=== PATIENT | female | born 1940 | race Caucasian/White ===

== ENCOUNTER 2016-11-30 19:49 | Emergency (ER) | payer OTHER, MEDICARE ==
[~2016-11-30] VITALS: Ht 157.5 cm; Wt 61.2 kg
[~2016-11-30 19:49] MED LIST: APAP500 OR; AZITHROMYCIN; COLACE100 MG PO; CRESTOR10 MG PO; DARVOCET-N 1001 EAC1 PO; FELDENE20 MG PO; FLAGYL500 M1 PO; IBUPROFEN 600600 M1 PO; MIACALCIN IH; PERCOCET 5-3251 EACH PO; ZOFRAN 4 MG ORAL4 M1 DIS
[2016-11-30 20:24] VITALS: BP 155/117
[2016-11-30] MEDS ORDERED: PREDNISONE 20 M20 MG PO (20:42)
[2016-11-30] MEDS ORDERED: ZYRTEC10 MG PO (20:42)
[2016-11-30] MEDS ORDERED: KEFLEX500 MG PO (20:42)
== END 2016-11-30 21:06 | disposition home or self-care (01) ==
LOC: ER 19:49
DX: L25.8 Unspecified contact dermatitis due to other agents (principal); Z98.890 Other specified postprocedural states; Z88.5 Allergy status to narcotic agent; Z91.048 Other nonmedicinal substance allergy status